=== PATIENT | female | born 1960 | race Caucasian/White ===

== ENCOUNTER 2022-04-09 12:45 | Outpatient (CLI) | payer OTHER, SELFPAY ==
--- NOTE | ~2022-04-09 | MMUS_ITS ---
EXAMINATION: MM diagnostic chen BI w lamont, US breast BI limited HISTORY: Palpable lump at the 12:00 location of the left breast. TECHNIQUE: Craniocaudal, mediolateral, and mediolateral oblique 3-D tomosynthesis images of the mikaela ts were performed and synthetic 2-D images were generated. CAD analysis was submitted and interpreted . High resolution limited bilateral breast ultrasound was performed. COMPARISON: None, baseline BREAST PARENCHYMAL COMPOSITION: The breasts are heterogeneously dense, which may obscure small masses . FINDINGS: MAMMOGRAPHIC FINDINGS: Left breast: There is an approximately 2.5 cm irregular, high density, spiculated mass with associate d architectural distortion in the posterior third of the upper breast at the 12:00 location 4 cm from the nipple corresponding to the palpable abnormality of concern. Right breast: There is a 7 mm oval, circumscribed, equal density mass in the anterior third of the in ner breast at the 3:00 location 3.5 cm from the nipple. ULTRASOUND: Left breast: There is a 3.2 x 2.0 cm irregular hypoechoic mass with spiculated margins, posterior aco ustic shadowing, and no definite internal vascularity at the 10:00 location 7 cm from the nipple kim esponding to palpable abnormality of concern. Right breast: There is a 6 mm cluster of microcysts at the 2:00 location 5 cm from the nipple. A 5 mm cyst is also seen at the same location. A 7 mm cluster of microcysts is noted at the 2:00 location 3 cm from the nipple. IMPRESSION: 1. Suspicious left breast mass. 2. Ultrasound-guided biopsy is recommended. BI-RADS category 5, highly suggestive of malignancy. Reviewed, dictated and finalized at location B. IMPRESSION: 1. Suspicious left breast mass. 2. Ultrasound-guided biopsy is recommended. BI-RADS category 5, highly suggestive of malignancy.
== END 2022-04-09 12:46 | disposition home or self-care (01) ==
PROVIDERS: PCP Internal Medicine Gastroenterology; Visit Provider Physician Assistant
DX: N63.20 Unspecified lump in the left breast, unspecified quadrant (principal); R92.8 Other abnormal and inconclusive findings on diagnostic imaging of breast
CPT/HCPCS: 76642; 77062; 77066; G0279